=== PATIENT | male | born 1965 | race Caucasian/White ===

== ENCOUNTER 2018-08-01 10:28 | Emergency (ER) | payer SELFPAY ==
[~2018-08-01] VITALS: Ht 170.2 cm; Wt 76.1 kg
[2018-08-01 10:30] VITALS: BP 150/93
[2018-08-01 11:10] LABS: BASOPHILS # (AUTO) 0.02 x10^3/uL (0-0.1); BASOPHILS % (AUTO) 0 % (0-1); EOSINOPHILS # (AUTO) 0.38 x10^3/uL (0-0.4); EOSINOPHILS % (AUTO) 6 % (1-7); LYMPHOCYTES # (AUTO) 1.56 x10^3/uL (1-3.4); LYMPHOCYTES % (AUTO) 23 % (22-44); MD NO; MEAN CORPUSCULAR HEMOGLOBIN 32.7 pg (27.5-34.5); MEAN CORPUSCULAR HGB CONC 33.2 g/dL (33.2-36.2); MEAN CORPUSCULAR VOLUME 98.5 fL (81-97); MEAN PLATELET VOLUME 8.7 fL (7.4-10.4); MONOCYTES # (AUTO) 0.75 x10^3/uL (0.2-0.8); MONOCYTES % (AUTO) 11 % (2-9); NEUTROPHILS # (AUTO) 3.96 x10^3/uL (1.8-6.8); NEUTROPHILS % (AUTO) 59 % (42-75); PLATELET COUNT 203 x10^3/uL (130-400); RED BLOOD COUNT 4.61 x10^6/uL (4.38-5.82); RED CELL DISTRIBUTION WIDTH 14.5 % (9.4-14.8)
[2018-08-01 11:22] LABS: ALBUMIN 4.2 g/dL (3.4-5.0); ANION GAP 7 mmol/L (5-15); CALCIUM 8.5 mg/dL (8.5-10.1); CHLORIDE 105 mmol/L (98-107); CREATININE 0.96 mg/dL (0.7-1.3)
[2018-08-01 11:25] LABS: SALICYLATE LEVEL < 1.7 mg/dL (2.8-20.0)
--- NOTE | 2018-08-01 11:27 | NUR ---
PATIENT COMPLAINS OF HEARING VOICES BEGINNING APPROX. THREE MONTHS AGO TELLING HIM TO DO METHAMPHETAMINES AND TO HARM HIMSELF WITH A KNIFE AND TO COMMIT SUICIDE. PATIENT COMPLAINS THAT HE PUT PAPER IN BOTH EARS IN AN ATTEMPT TO QUIET THE VOICES. PT THEN PUT WATER INTO THE EARS TO WET THE PAPER AND STATES THAT HE HAD TROUBLE HEARING AFTER THAT. PER PATIENT'S BROTHER, OBDULIA, OBDULIA REMOVED THE PAPER FROM THE R EAR BUT WAS UNABLE TO REMOVE THE PAPER FROM THE LEFT EAR. PATIENT IS CALM AND COOPERATIVE. ALL BELONINGS REMOVED FROM PATIENT AND SECURED IN ONE BAG IN LOCKED CABINET. URINE COLLECTED AND SENT TO LAB. BROTHER, OBDULIA, AT BEDSIDE.
[2018-08-01 11:32] LABS: FREE T4 (FREE THYROXINE) 0.75 ng/dL (0.76-1.46)
--- NOTE | 2018-08-01 11:43 | NUR ---
Report from Cain ROMEO. Pt resting in bed, JIN, denies needs. Pt's brother at bedside, supportive.
[2018-08-01 11:55] LABS: ACETAMINOPHEN < 2 mcg/mL (10-30)
[2018-08-01 11:58] LABS: AMPHETAMINE SCREEN, URINE Negative (Negative); BARBITURATE SCREEN, URINE Negative (Negative); BENZODIAZEPINE SCREEN, URINE Negative (Negative); CANNABINOID SCREEN, URINE Negative (Negative); COCAINE SCREEN, URINE Negative (Negative); METHADONE SCREEN, URINE Negative (Negative); OPIATE SCREEN, URINE Negative (Negative)
--- NOTE | 2018-08-01 12:23 | NUR ---
Report given to SOC psycologist. Pt to be evaluated now.
--- NOTE | 2018-08-01 12:26 | NUR ---
TASK RN: SOC SPEAKING W/ PT AT THIS TIME.
[2018-08-01] MEDS ORDERED: QUETIAPINE 25MG TABLET ONE (12:45)
[2018-08-01] MEDS ORDERED: QUETIAPINE 25MG TABLET PO ONE (13:00)
--- NOTE | 2018-08-01 13:41 | NUR ---
Pt ok for dc per SOC. Pt able to dress self fully and ambulate out of unit with steady gait accompanied by his brother, JIN.
== END 2018-08-01 13:43 | disposition home or self-care (01) ==
LOC: ED 11:42
DX: T16.2XXA Foreign body in left ear, initial encounter (principal); F29 Unspecified psychosis not due to a substance or known physiological condition; F22 Delusional disorders; F17.210 Nicotine dependence, cigarettes, uncomplicated; X58.XXXA Exposure to other specified factors, initial encounter; Y93.89 Activity, other specified; Y92.89 Other specified places as the place of occurrence of the external cause; Y99.8 Other external cause status
CPT/HCPCS: 36415; 70450; 80048; 80307; 80329; 82040; 84439; 84443; 85025; 99284; G0480